=== PATIENT | female | born 1985 | race Hispanic/Latino ===

== ENCOUNTER 2016-08-16 19:40 | Observation (INO) | payer SELFPAY ==
[2016-08-16 19:41] VITALS: BMI 27.4
--- NOTE | 2016-08-16 20:44 | C.PDOC ---
History Of Present Illness 30 year old patient, with no significant past medical history, presents to the ED complaining of RUQ pain for the past 3 days. Patient also complains of a fever for the past 2 days. The pain has been constant and today it's worse. The pain is exacerbated by ambulation and deep breathing. Patient denies any associated nausea, vomiting, diarrhea, or changes in bowel movement. Last week, patient notes she had URI symptoms and took an unknown antibiotic from a friend. Patient also abuses heroin by IV. She tested negative for HIV and Hepatitis. Patient denies any other complaints at this time. Time Seen by Provider: 08/16/16 20:16 Chief Complaint (Nursing): Abdominal Pain History Per: Patient History/Exam Limitations: no limitations Onset/Duration Of Symptoms: Days (3), Worse Since (today) Current Symptoms Are (Timing): Still Present Context: Other Severity: Mild Pain Scale Rating Of: 3 Location Of Pain/Discomfort: RUQ Radiation Of Pain To:: None Quality Of Discomfort: "Pain" Associated Symptoms: Fever Exacerbating Factors: Walking, Deep Breaths Alleviating Factors: None Last Bowel Movement: Today Recent travel outside of the [place]: No Past Medical History Reviewed: Historical Data, Nursing Documentation, Vital Signs Vital Signs: Last Vital Signs Temp 98.7 F 08/16/16 20:02 Pulse 88 08/16/16 20:02 Resp 20 08/16/16 20:02 BP 118/81 08/16/16 20:02 Pulse Ox 99 08/16/16 21:54 Surgical History: Cholecystectomy - [facility] Procedures DRUG DETOXIFICATION (06/22/14) INJECT/INFUSE NEC (11/12/13) Family History: States: Unknown Family Hx - Social History Hx Tobacco Use: Yes Hx Alcohol Use: No Hx Substance Use: No - Immunization History Hx Tetanus Toxoid Vaccination: No Hx Influenza Vaccination: No Hx Pneumococcal Vaccination: No Review Of Systems Except As Marked, All Systems Reviewed And Found Negative. Constitutional: Positive for: Fever Gastrointestinal: Positive for: Abdominal Pain. Negative for: Nausea, Vomiting , Diarrhea Psych: Negative for: Suicidal ideation Physical Exam - Physical Exam Appears: Non-toxic, No Acute Distress Skin: Warm, Dry Head: Atraumatic, Normacephalic Oral Mucosa: Moist Neck: Normal ROM, Supple Chest: Symmetrical Cardiovascular: Rhythm Regular Respiratory: Normal Breath Sounds, No Rales, No Rhonchi, No Wheezing Gastrointestinal/Abdominal: Bowel Sounds (normal), Soft, Tenderness (RUQ), Guarding, No Rebound Back: Normal Inspection, No CVA Tenderness Extremity: Normal ROM Neurological/Psych: Oriented x3, Normal Speech Gait: Steady ED Course And Treatment - Laboratory Results Result Diagrams: 08/16/16 20:44 08/16/16 20:44 Lab Interpretation: Normal O2 Sat by Pulse Oximetry: 99 (room air) Pulse Ox Interpretation: Normal - Radiology CXR: Interpreted by Me CXR Interpretation: Yes: No Acute Disease - CT Scan/US Abdomen US Other Rad Studies (CT/US): Read By Radiologist (Tarik Rey MD), Radiology Report Reviewed CT/US Interpretation: EXAM: US Abdomen Complete. CLINICAL HISTORY: 30 years old, female; Pain; Abdominal pain; Epigastric; Additional info: Abd pain. TECHNIQUE: Real-time ultrasound of the abdomen (complete) with image documentation. COMPARISON: No relevant prior studies available. FINDINGS: Liver: Fatty infiltration. No mass. Mild intrahepatic ductal dilatation. Gallbladder: Cholecystectomy. Common bile duct: Up to 0.92 cm in diameter. No stones. Pancreas: Unremarkable as visualized. Kidneys: Normal echogenicity. No hydronephrosis. Spleen: Enlarged, 15.7 cm. Aorta: Unremarkable. No aneurysm. Inferior vena cava: Unremarkable. Free fluid: No significant free fluid. IMPRESSION: 1. Biliary ductal dilatation. Suggest MRCP. 2. Splenomegaly. 3. Incidental/non-acute findings are described above. Reevaluation Time: 21:55 Reassessment Condition: Unchanged - Physician Consult Information Time Consulting Physician Contacted: 21:55 Physician Contacted: Kendall Woods Outcome Of Conversation: Patient to be admitted for GI evaluation and possible MRCP. Medical Decision Making Medical Decision Making: Plan: * Labs * Chest x-ray * Abdomen US Disposition - Disposition Disposition: HOSPITALIZED Disposition Time: 21:56 Condition: STABLE - POA Present On Arrival: None - Clinical Impression Clinical Impression: Right upper quadrant abdominal pain - Scribe Statement The provider has reviewed the documentation as recorded by the Scribe Vanessa Whitmore Provider Attestation: All medical record entries made by the Scribe were at my direction and personally dictated by me. I have reviewed the chart and agree that the record accurately reflects my personal performance of the history, physical exam, medical decision making, and the department course for this patient. I have also personally directed, reviewed, and agree with the discharge instructions and disposition.
[2016-08-16 20:48] LABS: BASO % 0.6 % (0.0-2.0); EOS # 0.1 K/uL (0.0-0.7); EOS % 0.9 % (0.0-4.0); HEMATOCRIT 34.9 % (34.0-47.0); LYMPH # 1.5 K/uL (1.0-4.3); LYMPH % 18.2 % (20.0-40.0); MEAN CORPUSCULAR HEMOGLOBIN 26.5 pg (27.0-31.0); MEAN CORPUSCULAR HGB CONC 33.1 g/dL (33.0-37.0); MEAN PLATELET VOLUME 9.9 fL (7.2-11.7); MONO # 0.8 K/uL (0.0-0.8); MONO % 9.5 % (0.0-10.0); NRBC % 0.1 % (0.0-2.0); RED CELL DISTRIBUTION WIDTH 15.1 % (11.5-14.5); WHITE BLOOD COUNT 8.1 K/uL (4.8-10.8)
[2016-08-16 20:57] LABS: CHLORIDE 98 mmol/L (98-107); POTASSIUM 4.2 mmol/L (3.6-5.2); SODIUM 136 mmol/L (132-148)
[2016-08-16 20:59] LABS: BILIRUBIN,TOTAL 0.6 mg/dL (0.2-1.3); CARBON DIOXIDE 27 mmol/L (22-30); GFR AFRICAN-AMERICAN > 60; RBC URINE 8 /hpf (0-3); URINE BACTERIA MANY (<OCC); URINE BILIRUBIN NEGATIVE (NEGATIVE); URINE BLOOD 1+ (NEGATIVE); URINE COLOR Yellow (YELLOW); URINE GLUCOSE (UA) NORMAL (Normal); URINE KETONE NEGATIVE (NEGATIVE); URINE LEUKOCYTE ESTERASE 2+ Leu/uL (Negative); URINE PROTEIN NEGATIVE (NEGATIVE); WBC URINE 108 /hpf (0-5)
[2016-08-16 21:00] LABS: ALB/GLOB RATIO 1.1 (1.0-2.1); ALKALINE PHOSPHATASE 59 U/L (38-126); ALT/SGPT 18 U/L (9-52); AST/SGOT 16 U/L (14-36); BLOOD UREA NITROGEN 10 mg/dL (7-17); CALCIUM 8.4 mg/dl (8.6-10.4); GLUCOSE,RANDOM 92 mg/dL (65-105)
[2016-08-16] MEDS ORDERED: cefTRIAXone IV 1 gm in Dextros 50 ML IVPB ONE ×2 (22:02→22:10)
--- NOTE | 2016-08-16 22:51 | CP.PCM.HP ---
<Elver Guajardo - Last Filed: 08/17/16 03:03> History of Present Illness - History of Present Illness History of Present Illness: CC: "RUQ abdominal pain" 30F with PMH of IVDA presents to [facility] ED with complaint of RUQ pain since Sunday. adama states that she was lying down at home Sunday after when the onset occurred. She reports that since Sunday she has also had intermittent subjective fever/chills, and nausea/vomiting. Patient experienced a similar pain in the past when she had her gallbladder removed. At that time she was with her first child. She reports her symptoms had a gradual onset and have been getting progressively worse. She rates the pain as 10/10 in severity. She describes the pain as constant and sharp located in RUQ without radiation. Taking deep breaths, certain movements and palpation exacerbates her pain while nothing alleviates it. Patient states that she she sick last week with a sore throat. She took an antibiotic that a friend gave her (Tetracycline ) and Tylenol. She became ill on Sunday and it resolved on . Patient admits to using about 5 bags of Heroin per day. She had weaned down to 5 bags from 2 bundles per day. 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 Patient admits body aches, weakness, fatigue, urinary frequency. Denies cp, sob, palpitations, diarrhea, constipation , incontinence, numbness/tingling. 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 [employer] Present on Admission - Present on Admission Any Indicators Present on Admission: No History of DVT/PE: No History of Uncontrolled Diabetes: No Urinary Catheter: No Decubitus Ulcer Present: No Review of Systems - Constitutional Constitutional: Anorexia, Chills, Fever, Headache, Weakness - EENT Eyes: absent: Blurred Vision, Change in Vision, Loss of Peripheral Vision Ears: absent: Decreased Hearing, Ear Discharge, Disequilibrium, Dizziness Nose/Mouth/Throat: absent: Change in Voice, Dysphagia, Sore Throat, Facial Pain , Neck Mass - Breasts Breasts: absent: Mass, Pain, Skin Changes, Swelling - Cardiovascular Cardiovascular: absent: Chest Pain, Chest Pain at Rest, Diaphoresis, Dyspnea, Leg Edema, Lightheadedness, Palpitations - Respiratory Respiratory: absent: Cough, Dyspnea, Hemoptysis, Dyspnea on Exertion - Gastrointestinal Gastrointestinal: Abdominal Pain, Nausea, Vomiting. absent: Constipation, Diarrhea, Fecal Incontinence, Hematemesis, Hematochezia - Genitourinary Genitourinary: Urinary Frequency. absent: Change in Urinary Stream, Difficulty Urinating, Dysuria, Urinary Incontinence - Musculoskeletal Musculoskeletal: Arthralgias, Myalgias. absent: Numbness, Tingling - Integumentary Integumentary: absent: Changing Lesions, New Lesions - Neurological Neurological: Headaches, Weakness. absent: Disequilibrium, Dizziness, Numbness , Syncope, Tingling, Tremor, Vertigo - Psychiatric Psychiatric: absent: Anxiety, Depression, Homicidal Ideation, Suicidal Ideation - Endocrine Endocrine: Fatigue. absent: Palpitations, Polydipsia, Polyphagia, Polyuria - Hematologic/Lymphatic Hematologic: absent: Easy Bleeding, Easy Bruising, Lymphadenopathy Past Patient History - Tetanus Immunizations Tetanus Immunization: Unknown - Past Medical History & Family History Past Medical History?: No - Past Social History Smoking Status: Light Smoker < 10 Cigarettes Daily - CARDIAC Hx Hypertension: No - PULMONARY Hx Respiratory Disorders: No - NEUROLOGICAL Hx Seizures: No - HEENT Hx HEENT Problems: No Other/Comment: Wear eye glasses - RENAL Hx Chronic Kidney Disease: No - ENDOCRINE/METABOLIC Hx Endocrine Disorders: No - HEMATOLOGICAL/ONCOLOGICAL Hx Human Immunodeficiency Virus (HIV): No - INTEGUMENTARY Hx Dermatological Problems: No - MUSCULOSKELETAL/RHEUMATOLOGICAL Hx Musculoskeletal Disorders: No - GASTROINTESTINAL Hx Gastrointestinal Disorders: No - GENITOURINARY/GYNECOLOGICAL Hx Sexually Transmitted Disorders: No - PSYCHIATRIC Hx Substance Use: No - SURGICAL HISTORY Hx Cholecystectomy: Yes - ANESTHESIA Hx Anesthesia: Yes Hx Anesthesia Reactions: No Hx Malignant Hyperthermia: No Meds Allergies/Adverse Reactions: Allergies Allergy/AdvReac Type Severity Reaction Status Date / Time Sulfa (Sulfonamide Allergy Verified 08/16/16 20:08 Antibiotics) Physical Exam - Constitutional Appears: No Acute Distress - Head Exam Head Exam: ATRAUMATIC, NORMOCEPHALIC - Eye Exam Eye Exam: EOMI, Normal appearance. absent: Scleral icterus Pupil Exam: PERRL - ENT Exam ENT Exam: Mucous Membranes Moist - Neck Exam Neck exam: Positive for: Normal Inspection - Respiratory Exam Respiratory Exam: Clear to Auscultation Bilateral, NORMAL BREATHING PATTERN - Cardiovascular Exam Cardiovascular Exam: RRR, +S1, +S2 - GI/Abdominal Exam GI & Abdominal Exam: Normal Bowel Sounds, Soft, Tenderness (RUQ). absent: Distended, Firm, Guarding, Rebound - Extremities Exam Extremities exam: Positive for: normal capillary refill, pedal pulses present. Negative for: calf tenderness, pedal edema - Back Exam Back exam: absent: CVA tenderness (L), CVA tenderness (R) - Neurological Exam Neurological exam: Alert, CN II-XII Intact, Oriented x3 - Psychiatric Exam Psychiatric exam: Normal Affect, Normal Mood - Skin Skin Exam: Dry, Intact, Normal Color, Warm Results - Vital Signs Recent Vital Signs: Last Vital Signs Temp 98.7 F 08/16/16 20:02 Pulse 88 08/16/16 20:02 Resp 20 08/16/16 20:02 BP 118/81 08/16/16 20:02 Pulse Ox 99 08/16/16 21:56 - Labs Result Diagrams: 08/16/16 20:44 08/16/16 20:44 Labs: Laboratory Results - last 24 hr 08/16/16 08/16/16 08/16/16 20:44 20:44 20:44 WBC 8.1 RBC 4.37 Hgb 11.6 Hct 34.9 MCV 80.0 L MCH 26.5 L MCHC 33.1 RDW 15.1 H Plt Count 167 MPV 9.9 Neut % (Auto) 70.8 Lymph % (Auto) 18.2 L [place] % (Auto) 9.5 Eos % (Auto) 0.9 Baso % (Auto) 0.6 Neut # 5.8 Lymph # 1.5 [place] # 0.8 Eos # 0.1 Baso # 0.0 Sodium 136 Potassium 4.2 Chloride 98 Carbon Dioxide 27 Anion Gap 15 BUN 10 Creatinine 0.6 L Est GFR ( Amer) > 60 Est GFR (Non-Af Amer) > 60 Random Glucose 92 Calcium 8.4 L Total Bilirubin 0.6 AST 16 ALT 18 Alkaline Phosphatase 59 Total Protein 7.0 Albumin 3.7 Globulin 3.3 Albumin/Globulin Ratio 1.1 Lipase 24 Urine Color Yellow Urine Clarity Hazy Urine pH 5.0 Ur Specific [place] 1.017 Urine Protein Negative Urine Glucose (UA) Normal Urine Ketones Negative Urine Blood 1+ H Urine Nitrate Positive H Urine Bilirubin Negative Urine Urobilinogen 2.0 H Ur Leukocyte Esterase 2+ H Urine WBC (Auto) 108 H Urine RBC (Auto) 8 H Ur Squamous Epith Cells 9 H Urine Bacteria Many H Urine HCG, Qual Negative Assessment & Plan - Assessment and Plan (Free Text) Plan: 1. RUQ Abdominal pain Med/surg NPO Abdominal US: biliary ductal dilation, splenomegaly (see full report) MRCP w/wo contrast GI consult, Dr. Centeno, help appreciated CRP, ESR GGT Hepatitis Panel HIV RPR Lipid panel IgM [place] ANCAs Bile acids Ceruloplasmin Antimitochondrial abs Blood culture Zofran 4 mg IVP Q6H PRN Protonix 40 mg PO daily Toradol 30 mg IVP Q6H PRN D5 NS 100 cc/hr 2. Heroin Abuse Psych consult, Dr. Andino, help appreciated Consider starting Clonidine if symptoms arise and BP increases - BP running low 3. UTI UA: 1+ blood, nitrate (+), Urobilogen 2.0, Leuk esterase 2+, WBC 108, RBC 8, many bacteria Urine Culture Rocephin 1 gm IVPB Q12H Chlamydia/GC 4. Prophylactic Measures Tylenol 650 mg PO Q6H PRN Lovenox 40 mg SC daily Zofran 4 mg IVP Q6H PRN Protonix 40 mg PO daily <Kendall Woods - Last Filed: 08/17/16 06:36> Results - Vital Signs Recent Vital Signs: Last Vital Signs Temp 98 F 08/17/16 00:35 Pulse 76 08/17/16 00:35 Resp 20 08/17/16 00:35 BP 104/67 08/17/16 00:35 Pulse Ox 95 08/17/16 00:35 - Labs Result Diagrams: 08/16/16 20:44 08/16/16 20:44 Assessment & Plan - Date & Time Date: 08/17/16 (I have seen and examined the patient. I agree with the findings and plan of care as documented by Dr. Guajardo. Patient with RUQ abdominal pain. Cholecystecomy years ago. Ultrasound with biliary ductal dilatation. Consult to GI. Consult psych for heroin abuse. Monitor for signs of withdrawal. Also with UTI. Rocephin. Urine and blood cultures. Monitor for acute changes.) Time: 06:35 Attending/Attestation - Attestation I have personally seen and examined this patient.: Yes I have fully participated in the care of the patient.: Yes I have reviewed all pertinent clinical information: Yes
[2016-08-16] MEDS ORDERED: Dextrose 5%/0.45% NS 1,000 ML IV ONE (22:55)
[2016-08-16] MEDS: Dextrose 5%/0.45% NS 1,000 ML IV SCH (22:58)
[2016-08-17 02:01] VITALS: BP 104/67; PULSE 76; RESP 20; TEMP 98; O2SAT 95
[2016-08-17] MEDS: Dextrose 5%/0.45% NS 1,000 ML IV SCH ×2 (07:38→11:02)
--- NOTE | 2016-08-17 08:34 | CP.PCM.CON ---
<Argelia Montes - Last Filed: 08/17/16 08:22> History of Present Illness - History of Present Illness History of Present Illness: Gastroenterology Fellow/PGY4 Consult Note 30 year old female with medical history of active Heroin Abuse, Constipation, E coli UTI 04/2016, and cholecystectomy 12 years prior presenting with abdominal pain. Patient describes progressive, constant, right upper abdomen pain without radiation for the last two days. She note similar symptoms prior to gallbladder removal twelve years ago. Associated chills, sweats, and fever on sunday and sunday of this week, measured to be 101.2 on Sunday a home. She notes having a sore throat a week prior. Denies nausea, vomiting, hematemesis, bloating, abdominal distension, diarrhea, melena, hematochezia, pruritis, yellowing of skin or eyes, leg swelling, chest pain, shortness of breath, dysuria, polyuria, hematuria, or unintentional weight loss. Notes hard stools with straining every other day. Admits to ongoing heroin abuse for the last four years. No prior EGD or colonoscopy. Family- denies colon cancer, liver cancer Social- tobacco- 1 pack /2 weeks x 16 years, IV drug abuse via right arm- heroin - previous 20 bags/day x 3years 11months, at present 5 bags/day for 1 month, previous 4 detox, denies alcohol use Surgery- cholecystectomy 12 years ago, 2 C-sections Review of Systems - Review of Systems Review of Systems: A 12-point review of systems negative except for as above Past Patient History - Tetanus Immunizations Tetanus Immunization: Unknown - Past Medical History & Family History Past Medical History?: No - Past Social History Smoking Status: Light Smoker < 10 Cigarettes Daily - CARDIAC Hx Hypertension: No - PULMONARY Hx Respiratory Disorders: No - NEUROLOGICAL Hx Seizures: No - HEENT Hx HEENT Problems: No Other/Comment: Wear eye glasses - RENAL Hx Chronic Kidney Disease: No - ENDOCRINE/METABOLIC Hx Endocrine Disorders: No - HEMATOLOGICAL/ONCOLOGICAL Hx Human Immunodeficiency Virus (HIV): No - INTEGUMENTARY Hx Dermatological Problems: No - MUSCULOSKELETAL/RHEUMATOLOGICAL Hx Musculoskeletal Disorders: No - GASTROINTESTINAL Hx Gastrointestinal Disorders: No - GENITOURINARY/GYNECOLOGICAL Hx Sexually Transmitted Disorders: No - PSYCHIATRIC Hx Substance Use: No - SURGICAL HISTORY Hx Cholecystectomy: Yes - ANESTHESIA Hx Anesthesia: Yes Hx Anesthesia Reactions: No Hx Malignant Hyperthermia: No Meds Allergies/Adverse Reactions: Allergies Allergy/AdvReac Type Severity Reaction Status Date / Time Sulfa (Sulfonamide Allergy Verified 08/16/16 20:08 Antibiotics) - Medications Medications: Current Medications Acetaminophen (Tylenol 325mg Tab) 650 mg PO Q6 PRN PRN Reason: Fever >100.4 F Enoxaparin Sodium (Lovenox) 40 mg SC DAILY [facility] Dextrose/Sodium Chloride (Dextrose 5%/0.45% Ns 1000 Ml) 1,000 mls @ 100 mls/hr IV .Q10H [facility] Last Admin: 08/17/16 07:38 Dose: 100 mls/hr Ceftriaxone Sodium 1 gm/ (Sodium Chloride) 100 mls @ 100 mls/hr IVPB Q12H [facility] Ketorolac Tromethamine (Toradol) 30 mg IV Q6 PRN PRN Reason: Pain, moderate (4-7) Last Admin: 08/17/16 00:29 Dose: 30 mg Ondansetron HCl (Zofran Inj) 4 mg IVP Q6 PRN PRN Reason: Nausea/Vomiting Pantoprazole Sodium (Protonix Ec Tab) 40 mg PO DAILY [facility] Physical Exam - Constitutional Appears: Non-toxic, No Acute Distress - Head Exam Head Exam: ATRAUMATIC, NORMOCEPHALIC - Eye Exam Eye Exam: EOMI, PERRL Pupil Exam: PERRL. absent: Miosis, Mydriatic - ENT Exam ENT Exam: Mucous Membranes Moist, Normal Oropharynx - Neck Exam Neck exam: Positive for: Full Rom, Normal Inspection - Respiratory Exam Respiratory Exam: Clear to Auscultation Bilateral. absent: Rales, Rhonchi, Wheezes - Cardiovascular Exam Cardiovascular Exam: RRR, +S1, +S2. absent: Gallop, Rubs - GI/Abdominal Exam GI & Abdominal Exam: Guarding, Normal Bowel Sounds, Organomegaly, Soft, Tenderness. absent: Distended, Firm, Rebound, Rigid Additional comments: RUQ tenderness to palpation, splenomegaly; voluntary guarding, negative Cohen' s on distraction, McBurney, or Rovsing's - Extremities Exam Extremities exam: Positive for: full ROM. Negative for: pedal edema - Neurological Exam Neurological exam: Alert - Psychiatric Exam Psychiatric exam: Normal Affect, Normal Mood - Skin Skin Exam: Dry, Intact, Normal Color, Warm Results - Vital Signs Recent Vital Signs: Last Vital Signs Temp 98 F 08/17/16 00:35 Pulse 76 08/17/16 00:35 Resp 20 08/17/16 00:35 BP 104/67 08/17/16 00:35 Pulse Ox 95 08/17/16 00:35 - Labs Result Diagrams: 08/16/16 20:44 08/16/16 20:44 Assessment & Plan - Assessment and Plan (Free Text) Assessment: 30 year old female with medical history of active Heroin Abuse, Constipation, E coli UTI 04/2016, and cholecystectomy 12 years prior presenting with right upper abdomen pain. No prior EGD or colonoscopy. Plan: >Ultrasound- CBD 0.9mm, mild intrahepatic biliary dilatation >secondary to cholecystectomy and IV drug abuse >significant subjective abdominal pain >low suspicion for underlying biliary pathology >normal LFTs, no utility for autoimmune hepatic workup >ordered MRCP given significant subjective abdominal discomfort >pending Hepatitis panel with IV drug abuse >substance abuse counselling provided >supportive care: pain control, IVFs, PPI >advance diet as tolerated >constipation-increase fiber and water intake >UTI-on ceftriaxone >further recommendations based on clinical course <Denilson Centeno - Last Filed: 08/17/16 14:21> Meds - Medications Medications: Current Medications Acetaminophen (Tylenol 325mg Tab) 650 mg PO Q6 PRN PRN Reason: Fever >100.4 F Enoxaparin Sodium (Lovenox) 40 mg SC DAILY [facility] Last Admin: 08/17/16 10:39 Dose: 40 mg Dextrose/Sodium Chloride (Dextrose 5%/0.45% Ns 1000 Ml) 1,000 mls @ 100 mls/hr IV .Q10H [facility] Last Admin: 08/17/16 11:02 Dose: 100 mls/hr Ceftriaxone Sodium 1 gm/ (Sodium Chloride) 100 mls @ 100 mls/hr IVPB Q12H [facility] Last Admin: 08/17/16 10:39 Dose: 100 mls/hr Ketorolac Tromethamine (Toradol) 30 mg IV Q6 PRN PRN Reason: Pain, moderate (4-7) Last Admin: 08/17/16 00:29 Dose: 30 mg Methadone HCl (Methadone) 10 mg PO Q24H [facility] PRN Reason: Taper Stop: 08/21/16 08:59 Ondansetron HCl (Zofran Inj) 4 mg IVP Q6 PRN PRN Reason: Nausea/Vomiting Pantoprazole Sodium (Protonix Ec Tab) 40 mg PO DAILY [facility] Last Admin: 08/17/16 10:39 Dose: 40 mg Results - Vital Signs Recent Vital Signs: Last Vital Signs Temp 98 F 08/17/16 00:35 Pulse 76 08/17/16 00:35 Resp 20 08/17/16 00:35 BP 104/67 08/17/16 00:35 Pulse Ox 95 08/17/16 00:35 - Labs Result Diagrams: 08/17/16 08:54 08/17/16 08:54 Labs: Laboratory Results - last 24 hr 08/17/16 08/17/16 08/17/16 08:54 08:54 08:54 WBC 6.0 RBC 3.85 Hgb 10.3 L Hct 31.1 L MCV 80.8 L MCH 26.8 L MCHC 33.1 RDW 15.1 H Plt Count 149 MPV 10.2 Neut % (Auto) 63.5 Lymph % (Auto) 23.5 [place] % (Auto) 10.7 H Eos % (Auto) 1.5 Baso % (Auto) 0.8 Neut # 3.8 Lymph # 1.4 [place] # 0.6 Eos # 0.1 Baso # 0.0 PT 12.8 H INR 1.1 APTT 30 Sodium 135 Potassium 3.9 Chloride 100 Carbon Dioxide 26 Anion Gap 13 BUN 10 Creatinine 0.6 L Est GFR ( Amer) > 60 Est GFR (Non-Af Amer) > 60 Random Glucose 93 Calcium 8.2 L Total Bilirubin 0.6 AST 19 ALT 17 Alkaline Phosphatase 49 Total Protein 6.1 L Albumin 3.1 L Globulin 3.0 Albumin/Globulin Ratio 1.0 Attending/Attestation - Attestation I have personally seen and examined this patient.: Yes I have fully participated in the care of the patient.: Yes I have reviewed all pertinent clinical information: Yes Notes (Text): 08/17/16 14:14 I have seen and examined patient with GI fellow. Agree with above documentation with the following additions. In brief, this is a 30 year old female with history of polysubstance abuse, cholecystectomy who presents to hospital with complaint of abdominal pain. She describes persistent worsening RUQ pain, 6/10 intensity for the past two days. She has been feeling ill with sore throat over the past one week, though recently her pain has gotten worse. She reports subjective fever up to 101 the day before yesterday. She otherwise denies nausea, vomiting, diarrhea, rectal bleeding, jaundice, pruritis, weight loss, or change in bowel habits. She admits to ongoing heroin use. No prior endoscopic evaluation. Polysubstance abuse Abdominal pain UTI - Continue with antibiotic therapy as per medical team, await urine culture results - LFTs, bilirubin are currently normal. US abdomen reviewed by me showing CBD of 0.9 mm along with mild intrahepatic biliary dilation which can be non- specific in patient post cholecystectomy. - MRCP ordered by medical team, will follow up results - Full liquid diet as tolerated - Obtain viral hepatitis panel, HIV, given ongoing IV drug use - If MRCP does not show any focal abnormalities, suggest advancing diet as tolerated and further additional outpatient follow up
[2016-08-17 09:02] LABS: BASO % 0.8 % (0.0-2.0); EOS # 0.1 K/uL (0.0-0.7); EOS % 1.5 % (0.0-4.0); HEMATOCRIT 31.1 % (34.0-47.0); LYMPH # 1.4 K/uL (1.0-4.3); LYMPH % 23.5 % (20.0-40.0); MEAN CELL VOLUME 80.8 fL (81.0-99.0); MEAN CORPUSCULAR HEMOGLOBIN 26.8 pg (27.0-31.0); MEAN CORPUSCULAR HGB CONC 33.1 g/dL (33.0-37.0); MEAN PLATELET VOLUME 10.2 fL (7.2-11.7); MONO # 0.6 K/uL (0.0-0.8); MONO % 10.7 % (0.0-10.0); RED CELL DISTRIBUTION WIDTH 15.1 % (11.5-14.5)
[2016-08-17 09:12] LABS: INR 1.1
[2016-08-17 09:36] LABS: CHLORIDE 100 mmol/L (98-107); POTASSIUM 3.9 mmol/L (3.6-5.2); SODIUM 135 mmol/L (132-148)
[2016-08-17 09:38] LABS: BILIRUBIN,TOTAL 0.6 mg/dL (0.2-1.3); CARBON DIOXIDE 26 mmol/L (22-30); GFR AFRICAN-AMERICAN > 60
[2016-08-17 09:39] LABS: ALKALINE PHOSPHATASE 49 U/L (38-126); ALT/SGPT 17 U/L (9-52); AST/SGOT 19 U/L (14-36); BLOOD UREA NITROGEN 10 mg/dL (7-17); CALCIUM 8.2 mg/dl (8.6-10.4); GLUCOSE,RANDOM 93 mg/dL (65-105); TOTAL PROTEIN 6.1 g/dL (6.3-8.3)
[2016-08-17] MEDS ORDERED: Enoxaparin 40 mg Syringe SC SCH (10:00)
[2016-08-17] MEDS ORDERED: Pantoprazole 40 mg EC Tab PO SCH (10:00)
--- NOTE | 2016-08-17 10:52 | US ---
HISTORY: abd pain COMPARISON: CT abdomen pelvis 05/02/2016 TECHNIQUE: Sonographic evaluation of the abdomen. FINDINGS: LIVER: Liver demonstrates mild increased echogenicity, likely representing hepatic parenchymal disease or fatty infiltration. This limits evaluation for small masses. No focal large liver mass is identified. Mild central intrahepatic biliary ductal dilatation is identified. Portal vein is patent with normal hepatopetal flow. GALLBLADDER: Surgically absent. COMMON BILE DUCT: Measures 0.9 cm in this postcholecystectomy patient. PANCREAS: The visualized portions are unremarkable in echogenicity. The remainder of the pancreas is obscured by bowel gas. RIGHT KIDNEY: Measures 11.4cm. Unremarkable in echogenicity. No shadowing renal stone, cyst, or hydronephrosis is identified LEFT KIDNEY: Measures 12.7cm. Unremarkable in echogenicity. No shadowing renal stone, cyst, or hydronephrosis is identified SPLEEN: Measures 15.7cm. Enlarged in size and unremarkable in echotexture. AORTA: No aneurysmal dilatation of the visualized portions. IVC: Visualized portions are unremarkable.. OTHER FINDINGS: None. IMPRESSION: Mildly Echogenic liver, likely representing fatty infiltration or hepatic parenchymal disease. Mild intrahepatic biliary ductal dilatation in this postcholecystectomy patient ; findings may be due to postsurgical change. Consider MRCP or ERCP further evaluation. Splenomegaly. Preliminary impression was provided by [facility]. Findings are concordant.
--- NOTE | 2016-08-17 10:53 | RAD ---
HISTORY: Abdominal pain COMPARISON: No prior. TECHNIQUE: Chest PA and lateral FINDINGS: LUNGS: No active pulmonary disease. PLEURA: No significant pleural effusion identified. No pneumothorax apparent. CARDIOVASCULAR: Normal. OSSEOUS STRUCTURES: No significant abnormalities. VISUALIZED UPPER ABDOMEN: Normal. OTHER FINDINGS: None. IMPRESSION: No active disease.
--- NOTE | 2016-08-17 11:49 | PCM.PSYCH ---
Initial Psychiatric Evaluation - Initial Psychiatric Evaluation Type of Admission: Voluntary Legal Status: Capacity Chief Complaint (in patient's own words): "I feel like I'm going to withdraw soon" History of Present Illness and Precipitating Events: Patient is a 30 year old single female with PMHx of bipolar disorder with depression and opioid use disorder who is in the hospital for choledocholithiasis s/p cholecystectomy. Psychiatry consult requested for opioid use disorder and opioid withdrawal. Patient reports shooting 5-8 bags per day for 4 years. She says she last used at 7pm yesterday and feels like she is going to start withdrawing soon. Patient also smokes pack of cigarettes per day. Patient denies using Percocet, oxycodone, any pills, cocaine, marijuana, ETOH, benzodiazepines. Patient has been to detox twice at [facility] and once here at [facility] but signed out AMA because she does not like the way Subutex makes her feel. Patient has never been to rehab but she has done NA meetings. Patient is trying to get into [facility] for methadone maintenance but she does not have insurance right now. 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 Patient was in [facility] for one month this year because she missed a court date for possession of heroin. She is now on probation for 2 years. Patient has a history of bipolar with depression and was hospitalized for it when she was 13. Patient does not take any psychiatric medications. Patient says she does not feel depressed, suicidal or have hallucinations or paranoia. Psychiatric History: prior bipolar disorder, unspecified Family Psychiatric history: none Substance abuse disorderes: Opioid use disorder x 4 years Current Medications: Active Medications Generic Name Dose Route Start Last Admin Trade Name Freq PRN Reason Stop Dose Admin Acetaminophen 650 mg 08/16/16 22:44 Tylenol 325mg Tab PO Q6 PRN Fever >100.4 F Enoxaparin Sodium 40 mg 08/17/16 10:00 08/17/16 10:39 Lovenox SC 40 mg DAILY JESSENIA Administration Dextrose/Sodium Chloride 1,000 mls @ 100 mls/hr 08/16/16 22:45 08/17/16 11:02 Dextrose 5%/0.45% Ns 1000 Ml IV 100 mls/hr .Q10H JESSENIA Administration Ceftriaxone Sodium 1 gm/ 100 mls @ 100 mls/hr 08/17/16 10:00 08/17/16 10:39 Sodium Chloride IVPB 100 mls/hr Q12H JESSENIA Administration Ketorolac Tromethamine 30 mg 08/16/16 22:44 08/17/16 00:29 Toradol IV 30 mg Q6 PRN Administration Pain, moderate (4-7) Methadone HCl 10 mg 08/18/16 09:00 Methadone PO 08/21/16 08:59 Q24H JESSENIA Taper Ondansetron HCl 4 mg 08/16/16 22:44 Zofran Inj IVP Q6 PRN Nausea/Vomiting Pantoprazole Sodium 40 mg 08/17/16 10:00 08/17/16 10:39 Protonix Ec Tab PO 40 mg DAILY JESSENIA Administration Past Psychiatric History - Past Psychiatric History Previous Treatment History: Inpatient Pertinent Medical Hx (Current Medical&Sleep Prob, Allergies): Allergies Allergy/AdvReac Type Severity Reaction Status Date / Time Sulfa (Sulfonamide Allergy Verified 08/16/16 20:08 Antibiotics) No Known Home Med 08/16/16 Review of Systems - Constitutional Constitutional: absent: Fever, Chills - EENT Ears: absent: Dizziness - Cardiovascular Cardiovascular: absent: Chest Pain - Respiratory Respiratory: absent: Dyspnea - Gastrointestinal Gastrointestinal: Abdominal Pain - Neurological Neurological: absent: Headaches - Psychiatric Psychiatric: absent: Anxiety, Depression, Hallucinations, Hopelessness, Paranoia , Suicidal Ideation, Visual Hallucinations, Tactile Hallucinations Mental Status Examination - Personal Presentation Personal Presentation: Looks stated age - Affect Affect: Broad - Motor Activity Motor Activity: Calm - Reliability in Providing Information Reliability in Providing Information: Good - Speech Speech: Organized - Mood Mood: Neutral - Formal Thought Process Formal Thought Process: No Impairment - Obsessions/Compulsions Obsessions: No Compulsions: No - Cognitive Functions Orientation: Person, Place, Situation, Time Sensorium: Alert Attention/Concentration: Attentive Estimate of Intelligence: Average Judgement: Imparied, as evidence by: Poor judgement Memory: Recent intact, as evidence by: Ability to recall events of the day, Remote intact, as evidenced by: Abilit to recall sig. life events - Risk Risk: Withdrawal - Strength & Assets Inventory Strength & Assets Inventory: Employment status, Employment history, Cooperative DSM 5 DX - DSM 5 DSM 5 Diagnosis: Opioid use disorder Opioid withdrawal History of bipolar disorder, unspecified - Recommended/Plan of Treatment Treatment Recommendations and Plan of Treatment: Methadone taper Methadone 15mg PO today, 10mg PO tomorrow, 5mg PO Sunday, 5mg PO Sunday if patient is still here CT briefly Prognosis: fair Discharge Plan and Discharge Criteria: discharge home once medically stable or transfer to detox if patient has not finished taper yet - Smoking Cessation Smoking Cessation Initiated: No Reason for not providing: patient says she does not want it
--- NOTE | 2016-08-17 15:17 | MRI ---
PROCEDURE: Magnetic Resonance Cholangiopancreatography HISTORY: Evaluate for intrahepatic biliary ductal dilatation. History of cholecystectomy COMPARISON: Comparison is made to the previous ultrasound dated 08/16/[address] dated 05/02/2016. TECHNIQUE: Multiplanar, multisequence MR images of the abdomen were obtained, including heavily T2 weighted MRCP images of the biliary system. Rotating maximum intensity projection images of the biliary system were generated. FINDINGS: MRCP: The common bile duct is mildly dilated measures up to 10 millimeter likely due to prior cholecystectomy. . No evidence of choledocholithiasis. Slightly dilated intrahepatic biliary ductal dilatation. LIVER: Mild hepatomegaly is again noted. Mild hepatic steatosis is noted. GALLBLADDER: The gallbladder was not visualized SPLEEN: [id number] splenomegaly is again noted. The spleen measures up to 15.3 centimeter in the largest longitudinal diameter. PANCREAS: Unremarkable. ADRENALS: Unremarkable. KIDNEYS: Unremarkable. AORTA: No aneurysm. ASCITES: None. OTHER FINDINGS: None. IMPRESSION: Mild intrahepatic and extrahepatic biliary ductal dilatation. No evidence of filling defect or choledocholithiasis in the CBD. No evidence of pancreatic mass lesion or dilated main pancreatic duct. Mild hepatomegaly and mild steatosis. Re- demonstration of mild splenomegaly measures up to 15.3 centimeter.
--- NOTE | 2016-08-17 15:34 | CP.PCM.PN ---
<Manuela Salazar - Last Filed: 08/17/16 15:28> Subjective - Date & Time of Evaluation Date of Evaluation: 08/17/16 Time of Evaluation: 10:00 - Subjective Subjective: Medicine Note for Dr. Stephenson, Patient was seen and examined at bedside. Patient reported she continues to have RUQ pain despite receiving the pain medications. Patient was instructed to allow the pain medications to work. She was concerned about withdrawing since she continues to us IV heroine. Denied fever, chills, headache, chest pain, SOB , or urinary symptoms. Objective - Vital Signs/Intake and Output Vital Signs (last 24 hours): Temp Pulse Resp BP Pulse Ox 98 F 76 20 104/67 95 08/17/16 00:35 08/17/16 00:35 08/17/16 00:35 08/17/16 00:35 08/17/16 00:35 - Medications Medications: Current Medications Acetaminophen (Tylenol 325mg Tab) 650 mg PO Q6 PRN PRN Reason: Fever >100.4 F Enoxaparin Sodium (Lovenox) 40 mg SC DAILY [facility] Last Admin: 08/17/16 10:39 Dose: 40 mg Dextrose/Sodium Chloride (Dextrose 5%/0.45% Ns 1000 Ml) 1,000 mls @ 100 mls/hr IV .Q10H [facility] Last Admin: 08/17/16 11:02 Dose: 100 mls/hr Ceftriaxone Sodium 1 gm/ (Sodium Chloride) 100 mls @ 100 mls/hr IVPB Q12H [facility] Last Admin: 08/17/16 10:39 Dose: 100 mls/hr Ketorolac Tromethamine (Toradol) 30 mg IV Q6 PRN PRN Reason: Pain, moderate (4-7) Last Admin: 08/17/16 13:35 Dose: 30 mg Methadone HCl (Methadone) 10 mg PO Q24H JESSENIA PRN Reason: Taper Stop: 08/21/16 08:59 Ondansetron HCl (Zofran Inj) 4 mg IVP Q6 PRN PRN Reason: Nausea/Vomiting Pantoprazole Sodium (Protonix Ec Tab) 40 mg PO DAILY [facility] Last Admin: 08/17/16 10:39 Dose: 40 mg - Labs Labs: 08/17/16 08:54 08/17/16 08:54 PT 12.8 SECONDS (9.7-12.2) H 08/17/16 08:54 INR 1.1 08/17/16 08:54 APTT 30 SECONDS (21-34) 08/17/16 08:54 - Constitutional Appears: No Acute Distress - Head Exam Head Exam: NORMAL INSPECTION, NORMOCEPHALIC - Respiratory Exam Respiratory Exam: Clear to Ausculation Bilateral, NORMAL BREATHING PATTERN. absent: Decreased Breath Sounds, Wheezes - Cardiovascular Exam Cardiovascular Exam: REGULAR RHYTHM, RRR, +S1, +S2 - GI/Abdominal Exam GI & Abdominal Exam: Soft, Tenderness (RUQ TTP), Normal Bowel Sounds. absent: Distended - Extremities Exam Extremities Exam: Normal Inspection. absent: Pedal Edema, Tenderness - Neurological Exam Neurological Exam: Alert, Awake, Oriented x3 - Skin Skin Exam: Dry, Intact, Normal Color, Warm Assessment and Plan - Assessment and Plan (Free Text) Assessment: 30 year old female with history of polysubstance abuse, cholecystectomy who presents to hospital with complaint of abdominal pain. Plan: 1. RUQ Abdominal pain Liquid diet Abdominal US: US abdomen showing CBD of 0.9 mm along with mild intrahepatic biliary dilation which can be non-specific in patient post cholecystectomy. ( see full report) MRCP w/wo contrast: Mild intrahepatic and extrahepatic biliary ductal dilatation. No evidence of filling defect or choledocholithiasis in the CBD. No evidence of pancreatic mass lesion or dilated main pancreatic duct. Mild hepatomegaly. and mild steatosis. GI consult, Dr. Centeno, help appreciated- As per GI, If MRCP does not show any focal abnormalities, suggest advancing diet as tolerated and further additional outpatient follow up F/U Labs: CRP, ESR GGT Hepatitis Panel HIV RPR Lipid panel IgM [place] ANCAs Bile acids Ceruloplasmin Antimitochondrial abs Blood culture Zofran 4 mg IVP Q6H PRN Protonix 40 mg PO daily Toradol 30 mg IVP Q6H PRN D5 NS 100 cc/hr 2. Heroin Abuse Psych consult, Dr. Andino, help appreciated. As per Psych,Methadone taper: Methadone 15mg PO today, 10mg PO tomorrow, 5mg PO Sunday, 5mg PO Sunday if patient is still here 3. UTI UA: 1+ blood, nitrate (+), Urobilogen 2.0, Leuk esterase 2+, WBC 108, RBC 8, many bacteria Urine Culture Rocephin 1 gm IVPB Q12H Chlamydia/GC 4. Prophylactic Measures Tylenol 650 mg PO Q6H PRN Lovenox 40 mg SC daily Zofran 4 mg IVP Q6H PRN Protonix 40 mg PO daily DW Martin Arboleda DO, PGY-1 <Ángel Stephenson - Last Filed: 08/17/16 17:31> Objective - Vital Signs/Intake and Output Vital Signs (last 24 hours): Temp Pulse Resp BP Pulse Ox 98 F 76 20 104/67 95 08/17/16 00:35 08/17/16 00:35 08/17/16 00:35 08/17/16 00:35 08/17/16 00:35 - Labs Labs: 08/17/16 08:54 08/17/16 08:54 PT 12.8 SECONDS (9.7-12.2) H 08/17/16 08:54 INR 1.1 08/17/16 08:54 APTT 30 SECONDS (21-34) 08/17/16 08:54 Attending/Attestation - Attestation I have personally seen and examined this patient.: Yes I have fully participated in the care of the patient.: Yes I have reviewed all pertinent clinical information, including history, physical exam and plan: Yes Notes (Text): 08/17/16 17:30 Patient was seen and examined at bedside with the resident Complains of right upper quadrant pain Abdominal ultrasound and MRCP report reviewed Patient signed out AMA.
--- NOTE | 2016-08-17 16:52 | CP.PCM.DIS ---
<Manuela Salazar - Last Filed: 08/17/16 16:47> Provider - Provider Date of Admission: 08/16/16 21:57 Attending physician: Kendall Woods MD Time Spent in preparation of Discharge (in minutes): 45 Hospital Course - Lab Results Lab Results: Most Recent Lab Values WBC 6.0 K/uL (4.8-10.8) 08/17/16 08:54 RBC 3.85 Mil/uL (3.80-5.20) 08/17/16 08:54 Hgb 10.3 g/dL (11.0-16.0) L 08/17/16 08:54 Hct 31.1 % (34.0-47.0) L 08/17/16 08:54 MCV 80.8 fL (81.0-99.0) L 08/17/16 08:54 MCH 26.8 pg (27.0-31.0) L 08/17/16 08:54 MCHC 33.1 g/dL (33.0-37.0) 08/17/16 08:54 RDW 15.1 % (11.5-14.5) H 08/17/16 08:54 Plt Count 149 K/uL (130-400) 08/17/16 08:54 MPV 10.2 fL (7.2-11.7) 08/17/16 08:54 Neut % (Auto) 63.5 % (50.0-75.0) 08/17/16 08:54 Lymph % (Auto) 23.5 % (20.0-40.0) 08/17/16 08:54 Pitkin % (Auto) 10.7 % (0.0-10.0) H 08/17/16 08:54 Eos % (Auto) 1.5 % (0.0-4.0) 08/17/16 08:54 Baso % (Auto) 0.8 % (0.0-2.0) 08/17/16 08:54 Neut # 3.8 K/uL (1.8-7.0) 08/17/16 08:54 Lymph # 1.4 K/uL (1.0-4.3) 08/17/16 08:54 Pitkin # 0.6 K/uL (0.0-0.8) 08/17/16 08:54 Eos # 0.1 K/uL (0.0-0.7) 08/17/16 08:54 Baso # 0.0 K/uL (0.0-0.2) 08/17/16 08:54 PT 12.8 SECONDS (9.7-12.2) H 08/17/16 08:54 INR 1.1 08/17/16 08:54 APTT 30 SECONDS (21-34) 08/17/16 08:54 Sodium 135 mmol/L (132-148) 08/17/16 08:54 Potassium 3.9 mmol/L (3.6-5.2) 08/17/16 08:54 Chloride 100 mmol/L (98-107) 08/17/16 08:54 Carbon Dioxide 26 mmol/L (22-30) 08/17/16 08:54 Anion Gap 13 (10-20) 08/17/16 08:54 BUN 10 mg/dL (7-17) 08/17/16 08:54 Creatinine 0.6 MG/DL (0.7-1.2) L 08/17/16 08:54 Est GFR ( Amer) > 60 08/17/16 08:54 Est GFR (Non-Af Amer) > 60 08/17/16 08:54 Random Glucose 93 mg/dL (65-105) 08/17/16 08:54 Calcium 8.2 mg/dl (8.6-10.4) L 08/17/16 08:54 Total Bilirubin 0.6 mg/dL (0.2-1.3) 08/17/16 08:54 AST 19 U/L (14-36) 08/17/16 08:54 ALT 17 U/L (9-52) 08/17/16 08:54 Alkaline Phosphatase 49 U/L (38-126) 08/17/16 08:54 Total Protein 6.1 g/dL (6.3-8.3) L 08/17/16 08:54 Albumin 3.1 g/dL (3.5-5.0) L 08/17/16 08:54 Globulin 3.0 gm/dL (2.2-3.9) 08/17/16 08:54 Albumin/Globulin Ratio 1.0 (1.0-2.1) 08/17/16 08:54 Lipase 24 U/L (23-300) 08/16/16 20:44 Urine Color Yellow (YELLOW) 08/16/16 20:44 Urine Clarity Hazy (Clear) 08/16/16 20:44 Urine pH 5.0 (5.0-8.0) 08/16/16 20:44 Ur Specific [place] 1.017 (1.003-1.030) 08/16/16 20:44 Urine Protein Negative mg/dL (NEGATIVE) 08/16/16 20:44 Urine Glucose (UA) Normal mg/dL (Normal) 08/16/16 20:44 Urine Ketones Negative mg/dL (NEGATIVE) 08/16/16 20:44 Urine Blood 1+ (NEGATIVE) H 08/16/16 20:44 Urine Nitrate Positive (NEGATIVE) H 08/16/16 20:44 Urine Bilirubin Negative (NEGATIVE) 08/16/16 20:44 Urine Urobilinogen 2.0 mg/dL (0.2-1.0) H 08/16/16 20:44 Ur Leukocyte Esterase 2+ Jesu/uL (Negative) H 08/16/16 20:44 Urine WBC (Auto) 108 /hpf (0-5) H 08/16/16 20:44 Urine RBC (Auto) 8 /hpf (0-3) H 08/16/16 20:44 Ur Squamous Epith Cells 9 /hpf (0-5) H 08/16/16 20:44 Urine Bacteria Many (<OCC) H 08/16/16 20:44 Urine HCG, Qual Negative (NEGATIVE) 08/16/16 20:44 - Hospital Course Hospital Course: Upon Admission: CC: "RUQ abdominal pain" 30F with PMH of IVDA presents to [facility] ED with complaint of RUQ pain since Sunday. parishn states that she was lying down at home Sunday after when the onset occurred. She reports that since Sunday she has also had intermittent subjective fever/chills, and nausea/vomiting. Patient experienced a similar pain in the past when she had her gallbladder removed. At that time she was with her first child. She reports her symptoms had a gradual onset and have been getting progressively worse. She rates the pain as 10/10 in severity. She describes the pain as constant and sharp located in RUQ without radiation. Taking deep breaths, certain movements and palpation exacerbates her pain while nothing alleviates it. Patient states that she she sick last week with a sore throat. She took an antibiotic that a friend gave her (Tetracycline ) and Tylenol. She became ill on Sunday and it resolved on . Patient admits to using about 5 bags of Heroin per day. She had weaned down to 5 bags from 2 bundles per day. 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 Patient admits body aches, weakness, fatigue, urinary frequency. Denies cp, sob, palpitations, diarrhea, constipation , incontinence, numbness/tingling. 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 She was kept NPO underwent an abdominal us which showed Abdominal US: US abdomen showing CBD of 0.9 mm along with mild intrahepatic biliary dilation which can be non-specific in patient post cholecystectomy. (see full report) MRCP w/wo contrast: Mild intrahepatic and extrahepatic biliary ductal dilatation. No evidence of filling defect or choledocholithiasis in the CBD. No evidence of pancreatic mass lesion or dilated main pancreatic duct. Mild hepatomegaly. and mild steatosis. GI consult, Dr. Centeno, help appreciated- As per GI, If MRCP does not show any focal abnormalities, suggest advancing diet as tolerated and further additional outpatient follow up. Patient was seen by Psych and was given a dose of methadone. Shortly after the patient stated she wanted to sign out AMA. Risks were explained to her including respiratory distress, seizures, cardiac arrest, or . Patient stated she understood. This is a brief summary of the patient's hospital course. Discharge Exam - Head Exam Head Exam: NORMAL INSPECTION, NORMOCEPHALIC - Eye Exam Eye Exam: Normal appearance - ENT Exam ENT Exam: Mucous Membranes Moist - Respiratory Exam Respiratory Exam: NORMAL BREATHING PATTERN. absent: Decreased Breath Sounds, Wheezes - Cardiovascular Exam Cardiovascular Exam: REGULAR RHYTHM - GI/Abdominal Exam GI & Abdominal Exam: Soft. absent: Distended, Tenderness - Extremities Exam Extremities exam: normal inspection, pedal pulses present - Neurological Exam Neurological exam: Alert - Skin Skin Exam: Dry, Intact, Normal Color, Warm Discharge Plan - Follow Up Plan Condition: STABLE Disposition: AGAINST MEDICAL ADVICE Instructions: Acute Abdominal Pain (DC), Acute Abdominal Pain (GEN) Additional Instructions: Patient instructed to return to the ED if her symptoms worsen. <Ángel Stephenson - Last Filed: 08/17/16 17:51> Provider - Provider Date of Admission: 08/16/16 21:57 Attending physician: Kendall Woods MD Hospital Course - Lab Results Lab Results: Most Recent Lab Values WBC 6.0 K/uL (4.8-10.8) 08/17/16 08:54 RBC 3.85 Mil/uL (3.80-5.20) 08/17/16 08:54 Hgb 10.3 g/dL (11.0-16.0) L 08/17/16 08:54 Hct 31.1 % (34.0-47.0) L 08/17/16 08:54 MCV 80.8 fL (81.0-99.0) L 08/17/16 08:54 MCH 26.8 pg (27.0-31.0) L 08/17/16 08:54 MCHC 33.1 g/dL (33.0-37.0) 08/17/16 08:54 RDW 15.1 % (11.5-14.5) H 08/17/16 08:54 Plt Count 149 K/uL (130-400) 08/17/16 08:54 MPV 10.2 fL (7.2-11.7) 08/17/16 08:54 Neut % (Auto) 63.5 % (50.0-75.0) 08/17/16 08:54 Lymph % (Auto) 23.5 % (20.0-40.0) 08/17/16 08:54 Pitkin % (Auto) 10.7 % (0.0-10.0) H 08/17/16 08:54 Eos % (Auto) 1.5 % (0.0-4.0) 08/17/16 08:54 Baso % (Auto) 0.8 % (0.0-2.0) 08/17/16 08:54 Neut # 3.8 K/uL (1.8-7.0) 08/17/16 08:54 Lymph # 1.4 K/uL (1.0-4.3) 08/17/16 08:54 Pitkin # 0.6 K/uL (0.0-0.8) 08/17/16 08:54 Eos # 0.1 K/uL (0.0-0.7) 08/17/16 08:54 Baso # 0.0 K/uL (0.0-0.2) 08/17/16 08:54 PT 12.8 SECONDS (9.7-12.2) H 08/17/16 08:54 INR 1.1 08/17/16 08:54 APTT 30 SECONDS (21-34) 08/17/16 08:54 Sodium 135 mmol/L (132-148) 08/17/16 08:54 Potassium 3.9 mmol/L (3.6-5.2) 08/17/16 08:54 Chloride 100 mmol/L (98-107) 08/17/16 08:54 Carbon Dioxide 26 mmol/L (22-30) 08/17/16 08:54 Anion Gap 13 (10-20) 08/17/16 08:54 BUN 10 mg/dL (7-17) 08/17/16 08:54 Creatinine 0.6 MG/DL (0.7-1.2) L 08/17/16 08:54 Est GFR ( Amer) > 60 08/17/16 08:54 Est GFR (Non-Af Amer) > 60 08/17/16 08:54 Random Glucose 93 mg/dL (65-105) 08/17/16 08:54 Calcium 8.2 mg/dl (8.6-10.4) L 08/17/16 08:54 Total Bilirubin 0.6 mg/dL (0.2-1.3) 08/17/16 08:54 AST 19 U/L (14-36) 08/17/16 08:54 ALT 17 U/L (9-52) 08/17/16 08:54 Alkaline Phosphatase 49 U/L (38-126) 08/17/16 08:54 Total Protein 6.1 g/dL (6.3-8.3) L 08/17/16 08:54 Albumin 3.1 g/dL (3.5-5.0) L 08/17/16 08:54 Globulin 3.0 gm/dL (2.2-3.9) 08/17/16 08:54 Albumin/Globulin Ratio 1.0 (1.0-2.1) 08/17/16 08:54 Lipase 24 U/L (23-300) 08/16/16 20:44 Urine Color Yellow (YELLOW) 08/16/16 20:44 Urine Clarity Hazy (Clear) 08/16/16 20:44 Urine pH 5.0 (5.0-8.0) 08/16/16 20:44 Ur Specific [place] 1.017 (1.003-1.030) 08/16/16 20:44 Urine Protein Negative mg/dL (NEGATIVE) 08/16/16 20:44 Urine Glucose (UA) Normal mg/dL (Normal) 08/16/16 20:44 Urine Ketones Negative mg/dL (NEGATIVE) 08/16/16 20:44 Urine Blood 1+ (NEGATIVE) H 08/16/16 20:44 Urine Nitrate Positive (NEGATIVE) H 08/16/16 20:44 Urine Bilirubin Negative (NEGATIVE) 08/16/16 20:44 Urine Urobilinogen 2.0 mg/dL (0.2-1.0) H 08/16/16 20:44 Ur Leukocyte Esterase 2+ Jesu/uL (Negative) H 08/16/16 20:44 Urine WBC (Auto) 108 /hpf (0-5) H 08/16/16 20:44 Urine RBC (Auto) 8 /hpf (0-3) H 08/16/16 20:44 Ur Squamous Epith Cells 9 /hpf (0-5) H 08/16/16 20:44 Urine Bacteria Many (<OCC) H 08/16/16 20:44 Urine HCG, Qual Negative (NEGATIVE) 08/16/16 20:44 Attending/Attestation - Attestation I have personally seen and examined this patient.: Yes I have fully participated in the care of the patient.: Yes I have reviewed all pertinent clinical information, including history, physical exam and plan: Yes Notes (Text): 08/17/16 17:51 Patient was seen and examined earlier with the resident Workup is in progress however patient signed out AGAINST MEDICAL ADVICE
== END 2016-08-17 16:51 | disposition left against medical advice (07) ==
LOC: C.ER 19:40 → C.5T 21:57
PROVIDERS: ADMIT Family Medicine; ATTEND Family Medicine
DX: R10.11 Right upper quadrant pain (principal); F11.23 Opioid dependence with withdrawal; N39.0 Urinary tract infection, site not specified; F17.210 Nicotine dependence, cigarettes, uncomplicated; K59.00 Constipation, unspecified; F31.9 Bipolar disorder, unspecified; Z90.49 Acquired absence of other specified parts of digestive tract
CPT/HCPCS: 36415; 71020; 74181; 76700; 80053; 81001; 83690; 84703; 85025; 85610; 85730; 87086; 99285; G0378; J0696; J1650; J1885; J7042

== ENCOUNTER 2016-12-20 09:27 | Emergency (ER) | payer MEDICAID, OTHER ==
[2016-12-20 09:28] VITALS: BMI 27.4
[2016-12-20 09:37] VITALS: TEMP 98.3
--- NOTE | 2016-12-20 10:32 | C.PDOC ---
History Of Present Illness 31 year old female presents to the ED for evaluation of pain and swelling to her left knee which began around 5 days ago. 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 Patient also denies fever, chills, or previous history of knee pain. Chief Complaint (Nursing): Lower Extremity Problem/Injury History Per: Patient History/Exam Limitations: no limitations Onset/Duration Of Symptoms: Days Current Symptoms Are (Timing): Still Present Additional History Per: Patient - Knee Description Of Injury: denies: Fell, Struck With Object, Struck Against Object, Twisted Past Medical History Reviewed: Historical Data, Nursing Documentation, Vital Signs Vital Signs: Last Vital Signs Temp 98.3 F 12/20/16 09:37 Pulse 72 12/20/16 12:24 Resp 18 12/20/16 12:24 BP 124/72 12/20/16 12:24 Pulse Ox 99 12/20/16 15:41 Surgical History: Cholecystectomy - [facility] Procedures DRUG DETOXIFICATION (06/22/14) INJECT/INFUSE NEC (11/12/13) Family History: States: Unknown Family Hx - Social History Hx Tobacco Use: Yes Hx Alcohol Use: No Hx Substance Use: Yes (LAST USED THIS MORNING) - Immunization History Hx Tetanus Toxoid Vaccination: Yes Hx Influenza Vaccination: No Hx Pneumococcal Vaccination: No Review Of Systems Constitutional: Negative for: Fever, Chills Musculoskeletal: Positive for: Other (left knee pain ) Neurological: Negative for: Weakness, Numbness Physical Exam - Physical Exam Appears: Non-toxic, No Acute Distress Skin: Normal Color, Warm, Dry Extremity: Tenderness (to region inferior to left patella ), No Calf Tenderness , Capillary Refill (less than 2 seconds ), No Deformity, Swelling (left knee ), No Other (no warmth or erythema of joint ) Neurological/Psych: Normal Speech, Normal Cognition, Normal Sensation Gait: Steady ED Course And Treatment O2 Sat by Pulse Oximetry: 99 (on RA) Pulse Ox Interpretation: Normal - Other Rad left knee XR X-Ray: Interpreted by Me, Viewed By Me, Read By Radiologist Interpretation: PROCEDURE: Left Knee Radiographs. HISTORY: COMPARISON: None available. FINDINGS: BONES: No acute displaced fracture. JOINTS: No dislocation. JOINT EFFUSION: Moderate to large suprapatellar joint effusion. OTHER FINDINGS: None. IMPRESSION: Moderate to large suprapatellar joint effusion. Progress Note: Left knee XR ordered and reviewed. Toradol IM administered. Knee brace applied, patient refused crutches. Patient was referred to Orthopedist for f/u. Disposition - Disposition Referrals: Alex Barajas MD [Staff Provider] - [facility] [Outside] [facility] [place] [Outside] Disposition: HOME/ ROUTINE Disposition Time: 12:11 Condition: STABLE Additional Instructions: Follow up with PMD within 1-2 days. Return to ED if feel worse. 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 - Scribe Statement The provider has reviewed the documentation as recorded by the Scribe (Navya Whitmore) All medical record entries made by the Scribe were at my direction and personally dictated by me. I have reviewed the chart and agree that the record accurately reflects my personal performance of the history, physical exam, medical decision making, and the department course for this patient. I have also personally directed, reviewed, and agree with the discharge instructions and disposition.
[2016-12-20 12:25] VITALS: BP 124/72; PULSE 72; RESP 18
--- NOTE | 2016-12-20 13:59 | RAD ---
PROCEDURE: Left Knee Radiographs. HISTORY: COMPARISON: None available. FINDINGS: BONES: No acute displaced fracture. JOINTS: No dislocation. JOINT EFFUSION: Moderate to large suprapatellar joint effusion. OTHER FINDINGS: None. IMPRESSION: Moderate to large suprapatellar joint effusion.
[2016-12-20 15:41] VITALS: O2SAT 99
== END 2016-12-20 12:29 | disposition home or self-care (01) ==
LOC: C.ER 09:27
DX: M25.562 Pain in left knee (principal)
CPT/HCPCS: 73562; 96372; 99285; J1885